=== PATIENT | female | born 1970 | race Asian ===

== ENCOUNTER 2024-09-16 13:15 | Outpatient (REF) | payer MEDICAID, SELFPAY ==
[2024-09-16 15:53] LABS: ALT 23 U/L (14-59); AST 19 U/L (15-37); Alkaline Phosphatase 41 U/L (46-116); BUN 11 mg/dL (7-18); Bilirubin, Total 0.4 mg/dL (0.2-1.0); CREATININE 0.7 mg/dL (0.55-1.02); Calcium 9.1 mg/dL (8.5-10.1); Calculated LDL 146 mg/dL (<100); Chloride 106 mmol/L (98-107); Cholesterol 244 mg/dL (<200); Estimated GFR 104.65 (mL/min/1.73m2); Glucose 82 mg/dL (74-106); HDL Cholesterol 89 mg/dL (>or=50); Potassium 4.2 mmol/L (3.5-5.1); Sodium 142 mmol/L (136-145); Total Protein 7.2 g/dL (6.4-8.2); Triglyceride 47 mg/dL (<150)
[2024-09-16 17:18] LABS: Hemoglobin A1C 5.8 % (<5.7)
[2024-09-16 21:47] LABS: Lab Add On Test DONE
[2024-09-16 21:55] LABS: Abs Immature Grans 0.01 10^3/uL (0.0-0.06); Absolute Basophil Count 0.04 10^3/uL (0.0-0.2); Absolute Eosinophil Count 0.08 10^3/uL (0.0-0.7); Absolute Lymphocyte Count 1.47 10^3/uL (1.2-3.4); Absolute Monocyte Count 0.41 10^3/uL (0.1-0.8); Absolute Neutrophil Count 2.35 10^3/uL (1.2-6.7); Basophils % 0.9 %; Eosinophils % 1.8 %; HGB 13.1 g/dL (11.2-15.7); Immature Grans % 0.2 %; Lymphocytes % 33.7 %; MCH 30.1 pg (27.0-33.0); MCHC 33.6 % (32.0-36.0); MCV 90 fL (80-95); Monocytes % 9.4 %; Platelet Count 266 10^3/uL (130-400); RBC 4.35 10^6/uL (3.93-5.22); RDW 11.7 % (11.7-14.6); RDW-SD 38.2 fL; WBC 4.36 10^3/uL (4.4-10.8)
[2024-09-18 12:49] LABS: Tissue Transglutaminase Ab IgA <1.2 U/mL (<4.0); Tissue Transglutaminase Ab IgG 4.7 U/mL
== END 2024-09-16 13:16 | disposition home or self-care (01) ==
LOC: NCHCN 13:15
PROVIDERS: PCP Nurse Practitioner Family; Visit Provider Student in an Organized Health Care Education/Training Program
DX: R21 Rash and other nonspecific skin eruption (principal); Z13.1 Encounter for screening for diabetes mellitus; Z13.220 Encounter for screening for lipoid disorders
CPT/HCPCS: 80053; 80061; 83036; 83516; 84443; 85025

== ENCOUNTER 2024-09-24 17:12 | Outpatient (REF) | payer MEDICAID, SELFPAY ==
[2024-09-25 09:55] LABS: HIV-1/2 Ag & Ab Screen Negative (Negative)
[2024-09-25 10:01] LABS: Hepatitis C Ab w Rflx HCV PCR Negative (Negative)
[2024-09-27 22:19] LABS: Anaplasma phagocytophilum Negative (Negative); B. miyamotoi PCR Negative (Negative); Babesia divergens/MO-1 Negative (Negative); Babesia duncani Negative (Negative); Babesia microti Negative (Negative); Ehrlichia chaffeensis Negative (Negative); Ehrlichia ewingii/canis Negative (Negative); Ehrlichia muris eauclairensis Negative (Negative)
== END 2024-09-24 17:13 | disposition home or self-care (01) ==
LOC: NCHCN 17:12
PROVIDERS: PCP Student in an Organized Health Care Education/Training Program; Visit Provider Student in an Organized Health Care Education/Training Program
DX: S00.261A Insect bite (nonvenomous) of right eyelid and periocular area, initial encounter (principal); W57.XXXA Bitten or stung by nonvenomous insect and other nonvenomous arthropods, initial encounter; Z11.59 Encounter for screening for other viral diseases; Z11.4 Encounter for screening for human immunodeficiency virus [HIV]
CPT/HCPCS: 86803; 87389; 87798

== ENCOUNTER 2024-10-08 16:47 | Outpatient (REF) | payer MEDICAID, SELFPAY ==
--- NOTE | 2024-10-08 13:46 | SKI_PTH ---
PATIENT: Fany Babin LOC: [facility] U#:[id number] AGE/SX: 54/F ROOM: RE10/08/[address]: Lennox Tao : 1970 BED: DIS: 10/08/2024 SPEC #: [id number] RECD: 10/08/24 17:44 STATUS: DEE DEE POZO #: [id number] SUNITA: 10/08/24 13:[address]: Lennox Tao DEPT: Surgical Specimen RECD BY: Sydni Miller Tissues: 1 - SKIN BIOPSY(SHAVE/PUNCH) Procedures: SKIN LEVEL 4 Comments: [id number]
== END 2024-10-08 16:48 | disposition home or self-care (01) ==
LOC: NCHCN 16:47
PROVIDERS: PCP Student in an Organized Health Care Education/Training Program; Visit Provider Student in an Organized Health Care Education/Training Program
DX: R21 Rash and other nonspecific skin eruption (principal); L30.8 Other specified dermatitis
CPT/HCPCS: 88305

== ENCOUNTER 2024-10-28 01:42 | Outpatient (CLI) | payer MEDICAID, SELFPAY ==
--- NOTE | 2024-10-28 | DI.MAMMO_ITS ---
Exam(s) MAMMO SCREENING EXAM: MAMMO SCREENING CLINICAL HISTORY: Z12.39 Screening. TECHNIQUE: Bilateral full field digital CC and MLO mammographic images were obtained with 3D tomosyn thesis and utilizing computer aided detection (CAD). COMPARISON: Prior outside mammograms dating back to 2014 were reviewed. FINDINGS: Fibroglandular tissue pattern is again noted be moderately dense, this somewhat decreasing the sensit ivity of the mammogram for finding hidden underlying lesions. There are no new significant radiograph findings in the right breast. However, posteriorly in left breast there is a lobulated noncalcified nodule measuring 1.5 x 1.0 cm, up against the chest wall 7 cm in from the nipple. Further imaging of this finding is recommended. There are no malignant-appearing microcalcification groups in this region nor elsewhere in either tyler ast. There is no significant architectural distortion nor skin thickening-retraction. IMPRESSION: 1. No radiographic evidence of malignancy in the right breast. 2. Posteriorly in the left breast there is a new 1.5 x 1.0 cm nodule as described above. Spot compre ssion view and ultrasound recommended to rule out malignancy. BI-RADS Category 0 - Incomplete: Need additional imaging evaluation Breast Density - Category C - The breast are heterogeneously dense, which may obscure small masses. Breast density Category C or D implies that the patient has dense breast tissue. Dense breast tissue can make it harder to find cancer on a mammogram. Dense breast tissue is also associated with an incr eased risk of breast cancer. This information about the result of the mammogram report was provided to the patient to raise their awareness. Use this report when you speak with the patient about their risks for breast cancer, which includes their family history. At that time, you may recommend additional screening tests (Ultrasoun d or MRI) as these tests may add significant information. A negative radiographic report should not delay biopsy if a dominant or clinically suspicious mass is present. Up to ten percent of cancers are not identified on mammography. A negative report may reinforce clinical impression. Adenosis and dense breasts may obscure an underlying neoplasm. False positive reports average 6 to 10%. Patient will receive a letter notifying them of these results.
== END 2024-10-28 02:02 ==
LOC: DI 01:43
PROVIDERS: PCP Student in an Organized Health Care Education/Training Program; Visit Provider Student in an Organized Health Care Education/Training Program
DX: Z12.31 Encounter for screening mammogram for malignant neoplasm of breast (principal); R92.333 Mammographic heterogeneous density, bilateral breasts
CPT/HCPCS: 77063; 77067

== ENCOUNTER 2024-11-04 01:14 | Outpatient (CLI) | payer MEDICAID, SELFPAY ==
--- NOTE | 2024-11-04 | DI.US_ITS ---
Exam(s) MG MAMMO SCREEN CALL BACK UNI US BREAST LT COMPLETE EXAM: MG MAMMO SCREEN CALL BACK UNI-LEFT AND COMPLETE LEFT BREAST ULTRASOUND CLINICAL HISTORY: NEW 1.5X1.0 CM NODULE POSTERIORLY LEFT BREAST R92.8 ABNL MAMMO. TECHNIQUE: Unilateral LEFT BREAST spot mammographic images obtained with 3D tomosynthesisand utilizi ng computer aided detection (CAD). Also performed cutaneous Beakley spot exercise with repeat exagger ated CC view following placement of skin marker over finding at the 11 o'clock position of the left b reast on ultrasound examination. Complete LEFT breast Ultrasound was also performed, including all 4 quadrants, the retroareolar regio n, and the ipsilateral axilla. COMPARISON: Prior mammograms were reviewed. This additional imaging was performed due to findings described on the recent screening mammogram of 10/28/2024. FINDINGS: DIAGNOSTIC MAMMOGRAM: Additional mammographic views performed todaydo not dissipate this nodule in the posterior aspect of the left breast. We proceeded with ultrasound COMPLETE LEFT BREAST ULTRASOUND: Ultrasound performed today reveals a significant finding at the deep 11 o'clock position which is a w ider than taller slightly lobulated solid nodule measuring 1.5 x 0.8 cm and exhibiting slightly incre ased through transmission.. We performed Beakley spot exercise and this corresponds to the nodule se en posteriorly in left breast on the mammogram. There few other findings in the left breast which are probably just asymmetric tissue and less concer charlie for true nodules. Scanning of the ipsilateral axilla reveals no significant adenopathy. IMPRESSION: 1. There is a 15 x 8 mm solid lobulated nodule at the 11 o'clock position of the left breast seen on ultrasound corresponding to the posteriorly located nodule on the mammogram. Has appearance of a pr obable fibroadenoma but cannot exclude malignancy. Ultrasound-guided core biopsy of this nodule is r ecommended. The patient was informed of these findings and recommendations by myself prior to leaving the departm ent today. Report discussed by phone with Dr. Tao 11/04/2024 at 12:50 p.m. BI-RADS Category 4 - Suspicious Abnormality: Biopsy should be considered Breast Density - Category C - The breast are heterogeneously dense, which may obscure small masses. Breast density Category C or D implies that the patient has dense breast tissue. Dense breast tissue can make it harder to find cancer on a mammogram. Dense breast tissue is also associated with an incr eased risk of breast cancer. This information about the result of the mammogram report was provided to the patient to raise their awareness. Use this report when you speak with the patient about their risks for breast cancer, which includes their family history. At that time, you may recommend additional screening tests (Ultrasoun d or MRI) as these tests may add significant information. A negative radiographic report should not delay biopsy if a dominant or clinically suspicious mass is present. Up to ten percent of cancers are not identified on mammography. A negative report may reinforce clinical impression. Adenosis and dense breasts may obscure an underlying neoplasm. False positive reports average 6 to 10%. Patient will receive a letter notifying them of these results.
== END 2024-11-04 01:34 ==
LOC: DI 01:14
PROVIDERS: PCP Student in an Organized Health Care Education/Training Program; Visit Provider Student in an Organized Health Care Education/Training Program
DX: Z12.31 Encounter for screening mammogram for malignant neoplasm of breast (principal); N63.22 Unspecified lump in the left breast, upper inner quadrant
CPT/HCPCS: 76642; 77063; 77067

== ENCOUNTER 2024-12-23 12:56 | Outpatient (REF) | payer MEDICAID, SELFPAY ==
[2024-12-23 15:11] LABS: Calculated LDL 147 mg/dL (<100); Cholesterol 244 mg/dL (<200); HDL Cholesterol 85 mg/dL (>or=50); Triglyceride 60 mg/dL (<150)
== END 2024-12-23 12:57 | disposition home or self-care (01) ==
LOC: NCHCN 12:56
PROVIDERS: PCP Student in an Organized Health Care Education/Training Program; Visit Provider Student in an Organized Health Care Education/Training Program
DX: E78.2 Mixed hyperlipidemia (principal)
CPT/HCPCS: 80061